=== PATIENT | female | born 1950 | race Caucasian/White ===

== ENCOUNTER 2024-08-02 09:26 | Day surgery (SDC) | payer MEDICARE, OTHER ==
[~2024-08-02] VITALS: Ht 160 cm; Wt 53.7 kg
[~2024-08-02 09:26] MED LIST: Balanced Salt Epinephrine Irrigation Solution 500 mL IR SCH; Lidocaine HCl/Pf 1% 5 ML VIAL XX SCH; Moxifloxacin HCL 0.5 MG/0.1 ML 0.4MLSYR RIGHTEYE SCH; PHENYLEPHRINE\\TROPICAMIDE\\TETRACAINE OPHTHALMIC DILATING SOLN RIGHTEYE PRN; Povidone-Iodine 450 DROP/30 ML Solution ONE; Povidone-Iodine 450 DROP/30 ML Solution RIGHTEYE SCH; Tetracaine HCl/Pf 0.5% Opth Soln 4 ml ONE
[2024-08-02] MEDS ORDERED: Diazepam 5 MG Tab ONE (09:53)
[2024-08-02] MEDS ORDERED: Diazepam 2 MG Tab ONE (09:53)
--- NOTE | 2024-08-02 10:03 | NUR ---
08/02/24 1003 Dominga Cutler 1000: ANXIETY 10/29 1001: 7 MG PO VALIUM PER ORDERS
[2024-08-02] MEDS ORDERED: FOSAMAX70 MG PO (10:06)
[2024-08-02] MEDS ORDERED: ROSUVASTATIN CAL5 MG PO (10:06)
[2024-08-02] MEDS ORDERED: AMLO5 (10:07)
[2024-08-02] MEDS ORDERED: AREDS (10:07)
[2024-08-02] MEDS ORDERED: CALCIUM CIT 311 EAC7 (10:08)
[2024-08-02] MEDS ORDERED: K2 (10:08)
[2024-08-02] MEDS ORDERED: COLLAGEN (10:08)
[2024-08-02] MEDS ORDERED: MULTIVITAMIN (10:09)
[2024-08-02] MEDS ORDERED: LOSA50 (10:09)
[2024-08-02] MEDS ORDERED: OMEGA 3 (10:09)
[2024-08-02] MEDS ORDERED: D3 (10:09)
[2024-08-02] MEDS ORDERED: COQ10 (10:09)
[2024-08-02] MEDS ORDERED: VALA500 (10:10)
[2024-08-02 11:05] VITALS: BP 137/76
--- NOTE | 2024-08-02 11:32 | NUR ---
08/02/24 1132 Susanne Maza D/C INSTRUCTIONS GIVEN TO PT, UNDERSTANDING VERBALIZED. PT GIVEN EYE KIT, ALONG W/ D/C PACKET. PT SITTING UP IN RECLINER DRINKING CRANBERRY JUICE W/O COMPLAINT. PT DENIES PAIN/NAUSEA, VSS, ON RA. PT WAITING FOR FRIEND TO ARRIVE AT [facility] TO PICK PT UP. THIS RN CALLED PT'S FRIEND, ОЛЬГА, THREE TIMES W/O ANSWER. VOICEMAIL LEFT. PT HAS ALL BELONGINGS. NO VISIBLE SIGNS OF DISTRESS NOTED.
== END 2024-08-02 11:35 | disposition home or self-care (01) ==
LOC: ORSCSDS 09:26
PROVIDERS: Student in an Organized Health Care Education/Training Program
PROC: 08RJ3JZ Replacement of Right Lens with Synthetic Substitute, Percutaneous Approach (ICD-10-PCS; principal; 2024-08-02 11:00)
DX: H25.813 Combined forms of age-related cataract, bilateral (principal); H40.003 Preglaucoma, unspecified, bilateral; H18.513 Endothelial corneal dystrophy, bilateral; I10 Essential (primary) hypertension; Z79.899 Other long term (current) drug therapy
CPT/HCPCS: A9270; V2632

== ENCOUNTER 2024-08-17 10:27 | Day surgery (SDC) | payer MEDICARE, OTHER ==
[~2024-08-17] VITALS: Ht 160 cm; Wt 52.6 kg
[~2024-08-17 10:27] MED LIST changes: +AMLO5; +AREDS; +CALCIUM CIT 311 EAC7; +COLLAGEN; +COQ10; +D3; +Diazepam 5 MG Tab PO PRN; +Diazepam 5 MG Tab PO SCH; +FOSAMAX70 MG PO; +K2; +LOSA50; +MULTIVITAMIN; +Moxifloxacin HCL 0.5 MG/0.1 ML 0.4MLSYR LEFTEYE SCH; -Moxifloxacin HCL 0.5 MG/0.1 ML 0.4MLSYR RIGHTEYE SCH; +OMEGA 3; +Ondansetron 4 MG SoluTab MM PRN; +PHENYLEPHRINE\\TROPICAMIDE\\TETRACAINE OPHTHALMIC DILATING SOLN LEFTEYE PRN; -PHENYLEPHRINE\\TROPICAMIDE\\TETRACAINE OPHTHALMIC DILATING SOLN RIGHTEYE PRN; +Povidone-Iodine 450 DROP/30 ML Solution LEFTEYE SCH; -Povidone-Iodine 450 DROP/30 ML Solution RIGHTEYE SCH; +ROSUVASTATIN CAL5 MG PO; +VALA500
[2024-08-17] MEDS ORDERED: Midazolam HCl 1MG / ML 2ML Vial ONE (11:24)
[2024-08-17] MEDS ORDERED: FentaNYL Citrate 50 MCG/ML 2 ML Injection ONE (11:24)
[2024-08-17 11:54] VITALS: BP 109/71
--- NOTE | 2024-08-17 12:07 | NUR ---
08/17/24 1207 Susanne Maza D/Juju INSTRUCTIONS GIVEN TO PT, UNDERSTANDING VERBALIZED. PT HAS ALL BELONGINGS, INCLUDING EYE KIT. PT DENIES PAIN/NAUSEA, TOLERATING CLEAR LIQUIDS W/O COMPLAINT. VSS, ON RA. PT WHEELED TO PRIVATE VEHICLE, STEADY GAIT NOTED UPON AMBULATION. NO VISIBLE SIGNS OF DISTRESS NOTED.
== END 2024-08-17 12:04 | disposition home or self-care (01) ==
LOC: ORSCSDS 10:27
PROVIDERS: Student in an Organized Health Care Education/Training Program
PROC: 08RK3JZ Replacement of Left Lens with Synthetic Substitute, Percutaneous Approach (ICD-10-PCS; principal; 2024-08-17 12:00)
DX: H25.813 Combined forms of age-related cataract, bilateral (principal); E78.00 Pure hypercholesterolemia, unspecified; I10 Essential (primary) hypertension; Z79.899 Other long term (current) drug therapy
CPT/HCPCS: J2250; J3010; V2632

== ENCOUNTER → 2025-04-24 | Outpatient (CLI) | payer MEDICARE, OTHER ==
[~2025-04-24] MED LIST changes: -Balanced Salt Epinephrine Irrigation Solution 500 mL IR SCH; -Diazepam 5 MG Tab PO PRN; -Diazepam 5 MG Tab PO SCH; -Lidocaine HCl/Pf 1% 5 ML VIAL XX SCH; -Moxifloxacin HCL 0.5 MG/0.1 ML 0.4MLSYR LEFTEYE SCH; -Ondansetron 4 MG SoluTab MM PRN; -PHENYLEPHRINE\\TROPICAMIDE\\TETRACAINE OPHTHALMIC DILATING SOLN LEFTEYE PRN; -Povidone-Iodine 450 DROP/30 ML Solution LEFTEYE SCH; -Povidone-Iodine 450 DROP/30 ML Solution ONE; -Tetracaine HCl/Pf 0.5% Opth Soln 4 ml ONE
[2025-04-27 17:39] LABS: PANCREATIC ELASTASE,FECAL 323 ug/g (>=100)
[2025-04-27 17:54] LABS: CALPROTECTIN,FECAL 88 ug/g (<=49)
[2025-04-29 16:18] LABS: OVA AND PARASITE,FECAL INTERP Negative (Negative)
== END | disposition home or self-care (01) ==
LOC: LAB SHORT 03:10 → LAB 03:10
PROVIDERS: Family Medicine
DX: K52.9 Noninfective gastroenteritis and colitis, unspecified (principal)
CPT/HCPCS: 82653; 83993; 87015; 87045; 87046; 87177; 87205; 87209; 87899